=== PATIENT | female | born 2005 | race Hispanic/Latino ===

== ENCOUNTER 2024-07-09 21:01 | Emergency (ER) | payer OTHER, SELFPAY ==
[2024-07-09 21:03] VITALS: BP 163/98
[2024-07-09 21:31] LABS: COVID-19 Antigen Positive (Negative)
--- NOTE | 2024-07-09 21:50 | ED.GENMED ---
History of Present Illness
General
Chief Complaint: Cold/Flu/URI Symptoms
Source: patient
Exam Limitations: none
Time Seen by Provider: 07/09/24 21:42
History of Present Illness
History of Present Illness:
This is a 19 year old female that comes in with c/o headache, vomiting and fever. States that this started yesterday. States that she has a cough and body aches. States that se has nausea, vomiting, diarrhea, headache with dizziness. Denies any
shaking chills, chest pain, SOB, abd pain, urinary burning.
Past History
Past History
ED Past Medical History: None; Negative Asthma, HTN, Hypercholesterolemia or NIDDM
ED Past Surgical History: None
Social History
Tobacco: Non-smoker
Alcohol: None
Personal: Single
Living: with family
Employment: Employed
Review of Systems
Review of Systems
All Other Systems: ROS reviewed and negative except as documented in HPI and ROS
Constitutional: Reports fever; Denies chills
EENT: Reports no symptoms
Respiratory: Reports cough; Denies trouble breathing
Cardiac: Reports no symptoms; Denies chest pain
ABD/GI: Reports nausea, vomiting and diarrhea; Denies abdominal pain
: Reports no symptoms; Denies dysuria, frequency or urgency
Musculoskeletal: Reports no symptoms
Skin: Reports no symptoms
Neurological: Reports dizzy and headache
Psychiatric: Reports no symptoms
Phy Exam
General Physical Exam
General Presentation: no apparent distress
General age: appears stated age
General Skin: warm and dry
General Habitus: normal
General Mental: alert
General Hydration: appears well hydrated
ENT Exam
ENT Exam: TM's normal, pharynx normal and neck supple
Eye Exam
Eye Exam: EOMI
Cardiovascular Exam
Cardiovascular Exam: regular rate/rhythm, no edema, no murmur and normal peripheral pulses
Pulmonary Exam
Pulmonary Exam: lungs clear, no respiratory distress, no rales, chest non tender, no crackles, no rhonchi, no wheezing and no cough
Gastrointestinal Exam
Gastrointestinal Exam: normal bowel sounds, non tender, soft, no organomegaly, no pulsatile mass and non distended
Musculoskeletal Exam
Musculoskeletal Exam: full ROM and no edema
Skin Exam
Skin Exam: normal color, warm/dry, no rash and no petechia
Psychiatric Exam
Psychiatric Exam: normal mood/affect
Course
Orders/Labs/Results
Orders:
Orders
07/09/24 21:10
COVID-19 Antigen Urgent
Source: Nasal Swab
Influenza A+B Rapid Molecular Urgent
MILE Source: Nasal Swab
Specimen Description:
Abnormal Lab Results
07/09/24
21:10
SARS-CoV-2 Antigen Positive A
(Negative)
COVID positive, Influenza negative
Vital Signs
Initial and Last Documented VS:
Initial Vital Signs
Temp Pulse Resp BP Pulse Ox
102.0 F H 127 20 163/98 99
07/09/24 21:03 07/09/24 21:03 07/09/24 21:03 07/09/24 21:03 07/09/24 21:03
Last Documented Vital Signs
Temp Pulse Resp BP Pulse Ox
102.0 F H 127 20 163/98 99
07/09/24 21:03 07/09/24 21:03 07/09/24 21:03 07/09/24 21:03 07/09/24 21:03
MDM/Problems Addressed
Differential Diagnosis Includes:
COVID, flu
MDM/Problems Addressed:
This is a 19 year old female that comes in with c/o fever, headache, cough, nausea, vomiting, diarrhea
Explained to patient that she has COVID. Patient is refusing any An IV of IV medication. States that she will take oral and go home. Encourage patient to increase her water intake to 8-8oz glasses daily. Will sent Prescription for Zofran to her
pharmacy. Patient to return with any other concerns
Chronic conditions affecting care:
NA
Acute Exacerbation and/or Progression of Chronic Illness:
NA
*Pulse Oximetry
Patient hypoxic: no
*EKG
Interpreted by ED Provider?: NA
Rate: EKG- N/A
*[employer] Engineer Interpretation
Rate: [employer] Engineer- N/A
*Critical Care Note
Total Time (30-74mins, 75-104mins- exclusive of procedures): Not Applicable
ED Attending Note
-
Portions of this chart may have been created with voice recognition software.� Occasional wrong word or��sound alike� substitutions may have occurred due to the inherent limitations of voice recognition software.
Discharge Plan
Departure
Patient Disposition: Home (Routine Discharge)
Date of Disposition: 07/09/24
Time of Disposition: 22:06
Patient with high blood pressure during this ER visit?: Yes
Condition: Good
Covid-19: Confirmed COVID-19
Discharge Problem:
COVID
Instructions: COVID-19 ED, BLOOD PRESSURE
Prescriptions:
New
ondansetron 4 mg tablet,disintegrating
4 mg PO Q8H PRN (Reason: nausea and vomiting) Qty: 10 0RF
No Action
epinephrine [EpiPen] 0.3 MG/0.3/SYRINGE auto-injector
0.3 mg IM .STAT PRN (Reason: difficulty Breathing) Qty: 1 0RF
Activity Restrictions/Additional Instructions:
As discussed, you have COVID. This is more like the common cold. Please increase your water intake to 8-8oz glasses daily. A prescription for Zofran has been sent to your pharmacy to help with nausea and vomiting. You can also take tylenol 1000mg
every 6 hours and alternate with Ibuprofen 600mg every 6 hours with food. Follow up with the family doctor as needed. NO WORK UNTIL YOU ARE FEVER FREE FOR 24 HOURS. IF YOU HAVE ANY OTHER CONCERNS PLEASE RETURN TO THE EMERGENCY ROOM.
Interventions
Interventions:
*Risk Screen - Suicide Last Done: 07/09/24 21:02
*General Assessment Last Done: 07/09/24 21:03
Discharge Date and Time
Print Language: NICARAGUAN
[2024-07-09] MEDS: MOTRIN 600 MG PO (22:05)
[2024-07-09] MEDS: ZOFRAN ODT (ORALLY DISINTEGRATING) 8 MG PO (22:05)
== END 2024-07-09 23:07 | disposition home or self-care (01) ==
LOC: EMR 21:01
PROVIDERS: EMERGENCY PHYSICIAN Emergency Medicine; FAMILY PHYSICIAN Family Medicine
DX: U07.1 COVID-19 (principal)
CPT/HCPCS: 99282; 87502; 87811

== ENCOUNTER 2025-04-11 21:41 | Emergency (ER) | payer OTHER, SELFPAY ==
[2025-04-11 21:42] VITALS: BP 138/76
[2025-04-11 21:55] VITALS: BMI 47.3
--- NOTE | 2025-04-11 22:59 | ED.GENMED ---
History of Present Illness
General
Chief Complaint: Head Injury
Source: patient and family
Exam Limitations: none
Time Seen by Provider: 04/11/25 21:54
Nursing documentation reviewed up to this point in time: agreed with
History of Present Illness
History of Present Illness:
Note:
CHIEF COMPLAINT(S)
Head injury with symptoms of nausea, light and sound sensitivity, and increased sleepiness.
HISTORY OF PRESENT ILLNESS
The patient is a 20-year-old female presenting with symptoms following a head injury. 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 She reports subsequent nausea, light and sound
sensitivity, and excessive sleepiness. The patient experiences a sensation that her eyes are constantly moving when closed, slight blurry vision, and denies vomiting or passing out but describes temporary darkness in vision post-impact. She has no
numbness, tingling, chest pain, or shortness of breath. The patient has never had a prior concussion or significant head injury, though she recalls a head injury from her youth.
REVIEW OF SYSTEMS
- Neurological: Reports nausea, light and sound sensitivity, increased sleepiness, and slight blurry vision. Denies numbness or tingling.
- Ophthalmological: Slight blurry vision, eyes reportedly feel constantly moving when closed.
- General: No vomiting, no loss of consciousness.
PHYSICAL EXAM
- Neurological: Awake, alert, and oriented to person, place, and time. Normal cerebellar function. normal uebkqj-zj-ztcz test, normal gait and szwe-[id number] test.
- Ophthalmological: Pupils equal, round, reactive to light and accommodation. Extraocular movements intact. On fundoscopic exam, normal cup to disc ratio.
- Cardiovascular: Regular rate and rhythm, no murmurs, rubs, or gallops.
- Respiratory: Lungs clear to auscultation bilaterally, no wheezes, rales, or rhonchi.
- General: No acute distress, pleasant affect, answering questions appropriately,
Nursing notes reviewed and vital signs reviewed.
PLAN
Diagnosis is consistent with a concussion based on symptoms. The patient was offered a computed tomography scan for reassurance, although it was explained that clinically, it appears unnecessary due to the low likelihood of significant intracranial
injury. Advised the patient on symptomatic treatment with acetaminophen and ibuprofen to manage pain. Encouraged the patient to rest and self-monitor for worsening symptoms or new issues.
DIFFERENTIAL DIAGNOSIS
The Differential Diagnosis includes, in no particular order and is not limited to:
1. Concussion
2. Migraine headache
3. Post-traumatic headache
[place] CT HEAD INJURY/TRAUMA RULE:
Result Summary
[address] Head is not necessary for this patient (sensitivity 83-100% for all intracranial traumatic findings, sensitivity 100% for findings requiring neurosurgical intervention)
Inputs:
GCS <15 at 2 hours post-injury -> 0 = No
Suspected open or depressed skull fracture -> 0 = No
Any sign of basilar skull fracture? Hemotympanum -> 0 = No
>= episodes of vomiting -> 0 = No
Age >=5 years -> 0 = No
Retrograde amnesia to the event >=30 minutes -> 0 = No
�Dangerous� mechanism? -> 0 = No
Disposition:
DIAGNOSIS
- Concussion (ICD-10 code: S06.0X0A)
SUMMARY OF ENCOUNTER
The patient, a 20-year-old female, came to the emergency department after hitting her head on a ledge four days ago. Since the head injury, she has experienced symptoms indicative of a concussion, such as nausea, light and sound sensitivity,
increased sleepiness, temporary darkness in vision post-impact, and a sensation that her eyes are moving when closed. Despite concerns, the patient declined a CT scan after discussing its potential to reassure but recognizing its clinical
non-necessity. After evaluation, she was diagnosed with a concussion.
PLAN
The management plan involved providing the patient with symptomatic treatment advice, including the use of acetaminophen and ibuprofen to manage pain. She was advised to rest adequately and to self-monitor for any new or worsening symptoms.
PATIENT EDUCATION AND COUNSELING
The patient was educated on concussion management and what symptoms to monitor, with a clear instruction to return to the ED if symptoms worsen or new symptoms develop. The patient indicated a strong understanding of these instructions.
FOLLOW-UP INSTRUCTIONS
The patient was discharged with specific concussion care instructions and advised of return symptoms warrants.
MEDICATION RECONCILIATION
Patients were advised for symptomatic treatment with zxot-knw-kajflpe medications such as acetaminophen and ibuprofen.
MEDICAL DECISION MAKING
The decision to forego a CT scan was made collaboratively after deliberation, understanding the low clinical necessity given the symptoms. Discussions included risks of radiation and the low likelihood of significant intracranial injury. The primary
focus was on managing symptoms and ensuring patient understanding and capability to monitor her condition at home. The decision took into account the patients stable presentation and the lack of concerning symptoms necessitating immediate imaging.
Past History
Past History
ED Past Medical History: None; Negative Asthma, HTN, Hypercholesterolemia or NIDDM
ED Past Surgical History: None
Social History
Tobacco: Non-smoker
Alcohol: None
Personal: Single
Living: with family
Employment: Employed
Phy Exam
General Physical Exam
General Presentation: well appearing and no apparent distress
General Skin: warm and dry
General Habitus: normal
General Mental: alert
General Hydration: appears well hydrated
ENT Exam
ENT Exam: EOMI, pharynx normal, neck supple and normocephalic
Eye Exam
Eye Exam: PERRL, cornea clear, conjunctiva normal and other (Wears glasses)
Eye Exam General: PERRL: bilateral and EOM intact: bilateral
Pupil Exam: Bilateral: round and reactive
Conjunctival Changes: bilateral: none
Retinal Exam: good venous pulsation: Bilateral
Pupil and Lens Exam: round pupil: Bilateral
Cardiovascular Exam
Cardiovascular Exam: regular rate/rhythm, no edema, no murmur and normal peripheral pulses
Pulmonary Exam
Pulmonary Exam: lungs clear, no respiratory distress, no rales, no crackles, no rhonchi, no stridor, no wheezing and no cough
Gastrointestinal Exam
Gastrointestinal Exam: normal bowel sounds, non tender, soft, no organomegaly, no pulsatile mass and non distended
Neurological Exam
Neurological Exam: alert, oriented x3, no motor deficits and speech normal
Musculoskeletal Exam
Musculoskeletal Exam: full ROM and no edema
Skin Exam
Skin Exam: normal color, warm/dry, no rash and no petechia
Psychiatric Exam
Psychiatric Exam: normal mood/affect
Course
Orders/Labs/Results
Orders:
Orders
04/11/25 22:34
CT Head W/o Iv Contrast Urgent
Comment:
Reason For Exam: head injury
Vital Signs
Initial and Last Documented VS:
Initial Vital Signs
Temp Pulse Resp BP Pulse Ox
98.5 F 88 16 138/76 100
04/11/25 21:42 04/11/25 21:42 04/11/25 21:42 04/11/25 21:42 04/11/25 21:42
Last Documented Vital Signs
Temp Pulse Resp BP Pulse Ox
98.5 F 88 16 138/76 98
04/11/25 21:42 04/11/25 21:42 04/11/25 21:42 04/11/25 21:42 04/11/25 21:59
*Pulse Oximetry
Patient hypoxic: no (98% on room air)
*Critical Care Note
Total Time (30-74mins, 75-104mins- exclusive of procedures): Not Applicable
ED Attending Note
-
Portions of this chart may have been created with voice recognition software.� Occasional wrong word or��sound alike� substitutions may have occurred due to the inherent limitations of voice recognition software.
Discharge Plan
Departure
Patient Disposition: Home (Routine Discharge)
Date of Disposition: 04/11/25
Time of Disposition: 23:13
Patient with high blood pressure during this ER visit?: Yes
Condition: Good
Discharge Problem:
Concussion, Head injury, closed
Instructions: Concussion, Adult (DC), Head Injury in Adults (DC), BLOOD PRESSURE
Prescriptions:
No Action
epinephrine [EpiPen] 0.3 MG/0.3/SYRINGE auto-injector
0.3 mg IM .STAT PRN (Reason: difficulty Breathing) Qty: 1 0RF
Referrals:
[facility] [Outside]
Activity Restrictions/Additional Instructions:
Thank You for choosing [facility].
It was a pleasure meeting you and taking part in your care. We hope for your continued healing and wellness.
Please read discharge instructions in their entirety. However, they are for general education and may not describe your exact diagnosis at discharge. Information on your ER visit and medical conditions were discussed with you along with appropriate
follow up information...
If indicated, please take your medications as instructed and indicated on discharge paperwork.
Please schedule a follow up appointment as directed. Call to schedule an appointment
Please return to the emergency department with ANY change in, persisting, or worsening of symptoms. If any of your symptoms do not improve, or persist, or become more severe within 6-12 hours, please return to the emergency department for further
care.
Please return to the emergency department if you develop a headache, neck pain/stiffness, fever greater than 100.4F, chest pain, shortness of breath, persistent nausea, vomiting, slurred speech, difficulty walking, numbness/tingling, weakness, signs
of infection or any other symptoms that are worrisome to you.
If you have any questions or concerns please do not hesitate to call the Hospital at or E-mail me directly at [email or web address]
Interventions
Interventions:
*Risk Screen - Suicide Last Done: 04/11/25 21:42
*General Assessment Last Done: 04/11/25 21:42
*Neglect/Abuse Screening Last Done: 04/11/25 21:42
*ED- Fall Risk Assessment Last Done: 04/11/25 21:59
*ED COVID-19 Vaccine History Last Done: 04/11/25 21:59
ED- Neurological Assessment Last Done: 04/11/25 21:59
ED-Skin Assessment Last Done: 04/11/25 21:59
Discharge Date and Time
Print Language: DIVEHI
[2025-04-11] MEDS: MOTRIN 600 MG PO (23:35)
== END 2025-04-11 23:47 | disposition home or self-care (01) ==
LOC: EMR 21:41
PROVIDERS: EMERGENCY PHYSICIAN Student in an Organized Health Care Education/Training Program; FAMILY PHYSICIAN Family Medicine
DX: S06.0XAA Concussion with loss of consciousness status unknown, initial encounter (principal); W22.09XA Striking against other stationary object, initial encounter
CPT/HCPCS: 99282

== ENCOUNTER 2025-04-14 17:33 | Emergency (ER) | payer OTHER, SELFPAY ==
[2025-04-14 17:36] VITALS: BP 127/82
--- NOTE | 2025-04-14 18:10 | ED.GENMED ---
History of Present Illness
General
Chief Complaint: Head Injury
Source: patient
Exam Limitations: none
Time Seen by Provider: 04/14/25 17:55
Nursing documentation reviewed up to this point in time: agreed with
History of Present Illness
History of Present Illness:
Patient is a 20-year-old female who presents to the emergency department with persistent headache after minor head trauma last week. Patient states that last Sunday she was sitting up in bed and accidentally struck her forehead on a wooden
ledge. She denies any loss of consciousness. She reports that she has had persistent headache, brain fog, and dizziness since. She denies any vomiting, double vision, or blurry vision. Patient denies any difficulties with speech. She is
ambulating without difficulty although feels a little unsteady on her feet.
She was seen in the emergency department on Sunday and diagnosed with concussion. She decided to not undergo CT imaging of the head at the time
Patient has been taking Tylenol at home for headache although states symptoms have been persistent. She became concerned given duration of symptoms and presented back to the emergency department for head CT.
Past History
Past History
ED Past Medical History: None; Negative Asthma, HTN, Hypercholesterolemia or NIDDM
ED Past Surgical History: None
Social History
Tobacco: Non-smoker
Alcohol: None
Personal: Single
Living: with family
Employment: Employed
Review of Systems
Review of Systems
Allergies reviewed?: Yes
All Other Systems: ROS reviewed and negative except as documented in HPI and ROS
Phy Exam
Physical Exam
Physical Exam:
Vitals: Patient's vital signs are stable. Afebrile
General: Patient is well appearing, no acute distress
Skin: Warm and dry, no rashes or lesions. No laceration
Head: Normocephalic, atraumatic
Eyes: Sclera nonicteric. EOMs intact. Pupils equal round reactive to light bilaterally. No nystagmus.
Throat: Protecting airway
Neck: Normal ROM, no cervical spine tenderness, no meningismus
Cardiac: Regular rate and rhythm, no murmurs.
Pulm: Normal respiratory effort, no wheezes, rales, rhonchi heard on exam
.
Abdomen: No abdominal tenderness.
Extremities: No evidence of cyanosis or edema. Strength 5/5 in bilateral upper and lower extremities.
Neuro: AAOx3. CN II-XII grossly intact on examination. Normal [id number]. Fluid speech. No facial droop or asymmetry no focal neurologic deficits.
Psychiatric: Normal affect.
Course
Orders/Labs/Results
Orders:
Orders
04/14/25 18:39
Ibuprofen [Motrin] 400 mg PO NOW STA
04/14/25 18:59
CT Head W/o Iv Contrast Urgent
Comment:
Reason For Exam: trauma, headache
Vital Signs
Initial and Last Documented VS:
Initial Vital Signs
Temp Pulse Resp BP Pulse Ox
98.7 F 95 18 127/82 98
04/14/25 17:36 04/14/25 17:36 04/14/25 17:36 04/14/25 17:36 04/14/25 17:36
Last Documented Vital Signs
Temp Pulse Resp BP Pulse Ox
98.7 F 70 20 121/71 99
04/14/25 17:36 04/14/25 20:22 04/14/25 20:22 04/14/25 20:22 04/14/25 20:22
MDM/Problems Addressed
Differential Diagnosis Includes:
Not limited to: Concussion, postconcussive syndrome, migraine headache, tension, intracranial hemorrhage, etc.
MDM/Problems Addressed:
The patient, a 20-year-old female, presented with persistent headaches, dizziness, photophobia, and fatigue following a head injury that occurred approximately one week ago. She was seen in the emergency department a few days ago but chose not to
undergo CT imaging at that time. Presenting today, she is concerned about her symptoms and requests imaging. Despite the persistence of symptoms, there are no new neurologic symptoms such as double vision, vomiting, ataxia, dysarthria, or changes in
mental status. Vitals are stable, and she is neurologically intact with no focal deficits. Symptoms are most consistent with post-concussion syndrome. Shared decision-making led to the patients request for CT imaging due to her concerns, despite her
stable condition and low risk of acute intracranial injury. She is aware of radiation exposure.
Update: CT head without acute traumatic injuries identified. Ultimately suspect symptoms secondary to postconcussive syndrome. Patient is remained stable in the emergency department no neurologic deficits. Feel stable for discharge home with
supportive care, primary care follow-up and close return precautions. Patient comfortable with this plan.
Chronic conditions affecting care:
N/A
Acute Exacerbation and/or Progression of Chronic Illness:
N/A
*Radiology
Radiology exam reviewed: preliminary read by ED provider (Head CT reviewed by ca-no acute abnormalities) and radiology read reviewed
*Pulse Oximetry
Patient hypoxic: no (98% on room air)
*EKG
Interpreted by ED Provider?: NA
*Resident Care Provider Interpretation
Rate: Resident Care Provider- N/A
*Critical Care Note
Total Time (30-74mins, 75-104mins- exclusive of procedures): Not Applicable
Data Reviewed
Review of Other/Old Records Reveals: Discharge Summary (Discharge summary from 04/11/2025-diagnosed w/ concussion)
ED Attending Note
-
Portions of this chart may have been created with voice recognition software.� Occasional wrong word or��sound alike� substitutions may have occurred due to the inherent limitations of voice recognition software.
Discharge Plan
Departure
Patient Disposition: Home (Routine Discharge)
Date of Disposition: 04/14/25
Time of Disposition: 20:18
Patient with high blood pressure during this ER visit?: No
Condition: Good
Covid-19: Not Applicable
Discharge Problem:
Post concussive syndrome
Instructions: Concussion, Adult (DC), Head Injury in Adults (DC)
Prescriptions:
No Action
epinephrine [EpiPen] 0.3 MG/0.3/SYRINGE auto-injector
0.3 mg IM .STAT PRN (Reason: difficulty Breathing) Qty: 1 0RF
Referrals:
Isis Franco MD [Family Provider, [facility]] - Follow up in 2-3 days
Activity Restrictions/Additional Instructions:
RETURN TO THE EMERGENCY DEPARTMENT WITH ANY SEVERE HEADACHE OR NECK PAIN, INTRACTABLE NAUSEA/VOMITING, CHANGES IN VISION, CONFUSION, DIFFICULTIES WITH WALKING OR TALKING, WORSENING IN CURRENT SYMPTOMS, OR ANY OTHER CONCERNS
- As discussed that your head CT showed no evidence of acute intracranial bleeding or other traumatic injuries. You likely sustained a concussion.
- It is important stay well-hydrated and get plenty of rest. You should limit screen time. Take Tylenol and/or Motrin as needed for pain.
- Follow-up with primary care for further evaluation/management and to ensure that symptoms are improving
Monitor your symptoms closely and return to the emergency department with any acute worsening/new symptoms or any other concerns
Interventions
Interventions:
*Risk Screen - Suicide Last Done: 04/14/25 17:44
*General Assessment Last Done: 04/14/25 17:52
*Neglect/Abuse Screening Last Done: 04/14/25 17:36
*ED- Fall Risk Assessment Last Done: 04/14/25 17:52
*ED COVID-19 Vaccine History Last Done: 04/14/25 17:52
*Nursing Disposition Last Done: 04/14/25 20:24
ED- Neurological Assessment Last Done: 04/14/25 17:52
ED-Skin Assessment Last Done: 04/14/25 17:52
Discharge Date and Time
Discharge Date/Time: 04/14/25 20:25
Print Language: GREEK
[2025-04-14] MEDS: MOTRIN 400 MG PO (18:53)
[2025-04-14 20:22] VITALS: BP 121/71
== END 2025-04-14 20:25 | disposition home or self-care (01) ==
LOC: EMR 17:33
PROVIDERS: EMERGENCY PHYSICIAN Emergency Medicine; FAMILY PHYSICIAN Family Medicine
DX: G44.309 Post-traumatic headache, unspecified, not intractable (principal); F07.81 Postconcussional syndrome
CPT/HCPCS: 99284; 70450